=== PATIENT | male | born 1980 | race Caucasian/White ===

== ENCOUNTER 2024-12-31 12:50 | Emergency (ER) | payer MEDICAID ==
[~2024-12-31] VITALS: Ht 182.9 cm; Wt 88.5 kg
[2024-12-31] MEDS ORDERED: dexaMETHasone SOD PHOSPHATE 1 ML ONE (13:18)
[2024-12-31] MEDS ORDERED: KETOROLAC TROMETHAMINE 15 MG/ML VIAL ONE (13:18)
[2024-12-31] MEDS ORDERED: NAPR-1164 PO (13:19)
[2024-12-31] MEDS: dexaMETHasone SOD PHOSPHATE 10 MG/ML VIAL IM ONE (13:26)
[2024-12-31] MEDS: KETOROLAC TROMETHAMINE 15 MG/ML VIAL IM ONE (13:26)
[2024-12-31 13:45] VITALS: BP 112/74; TEMP 98.2; O2SAT 99
== END 2024-12-31 13:53 | disposition home or self-care (01) ==
LOC: ER 12:57
DX: M54.42 Lumbago with sciatica, left side (principal)
CPT/HCPCS: 99284; 96372 ×2; J1885; J1100